=== PATIENT | female | born 1980 | race Caucasian/White ===

== ENCOUNTER 2019-04-03 17:43 | Emergency (ER) | payer SELFPAY ==
[~2019-04-03] VITALS: Ht 154.9 cm; Wt 58.7 kg
[2019-04-03 18:18] VITALS: BP 134/81; PULSE 59; RESP 18; Ht 154.9 cm; Wt 58.7 kg
== END 2019-04-03 23:00 | disposition left against medical advice (07) ==
LOC: FTE 17:43
DX: Z53.21 Procedure and treatment not carried out due to patient leaving prior to being seen by health care provider (principal)